=== PATIENT | female | born 2000 | race Hispanic/Latino ===

== ENCOUNTER 2024-05-31 23:23 | Emergency (ER) | payer BC ==
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
[2024-06-01 01:40] VITALS: O2SAT 100
[2024-06-01 01:41] VITALS: BP 121/87; TEMP 97.4
== END 2024-06-01 01:11 | disposition home or self-care (01) ==
LOC: ER 23:23
DX: O9A.211 Injury, poisoning and certain other consequences of external causes complicating pregnancy, first trimester (principal); S00.81XA Abrasion of other part of head, initial encounter; Z3A.01 Less than 8 weeks gestation of pregnancy; V89.2XXA Person injured in unspecified motor-vehicle accident, traffic, initial encounter
CPT/HCPCS: 76815; 99283